=== PATIENT | male | born 1980 | race Caucasian/White ===

== ENCOUNTER 2018-10-26 11:58 | Emergency (ER) | payer OTHER, SELFPAY ==
[2018-10-26 12:03] VITALS: BP 130/90; PULSE 98; RESP 16; TEMP 36.6; O2SAT 98
--- NOTE | 2018-10-26 12:22 | ED.GENADUL_ITS ---
Discharge Plan Disposition Patient Disposition: HOME Condition: Stable Discharge Details Chief Complaint: EyeProblem Clinical Impression: Conjunctivitis of left eye Primary Care Provider: None,None ED Provider: Parag Pires Home Meds and New Rx's Prescriptions: New erythromycin 5 mg/gram (0.5 %) ointment 1 applic OP TID 7 Days Qty: 3.5 RF: 0 Continued albuterol sulfate [ProAir HFA] 200 PUFF HFA aerosol inhaler 2 puff Inhalation Q6H Qty: 1 RF: 0 Discharge Instructions Instructions: Conjunctivitis (ED) Medical Decision Making 38 yo male comes in with left eye redness/crusting since this morning. Has injected conjunctiva of left eye, no periorbital swelling, eomi without pain, perrl, denies trauma, no evidence of corneal abrasion or iritis. Suspect conjunctivitis, will tx with abx ointment and d/c, advised f/u with pcp if not better in a week and return precautions given Differential Diagnosis keratitis, conjunctivitis HPI General Mode of arrival: ambulatory . Date/Time Provider Initiated Documentation: 10/26/18 12:16 . Limitations to Documentation: no limitations . Information obtained by: patient . History of Present Illness 38 year old M presents to the emergency department with the chief complaint of left eye redness, described as mild, and is localized to the eyes. Patient reports no radiation. Patient started experiencing this day(s) (1) and it has been constant. No relieving factors improve symptom(s), No exacerbating factors reported . Patient notes no other symptoms.. Patient did receive the following treatments prior to arrival, none Related Data Home Medications Medication Instructions Recorded Confirmed albuterol sulfate [ProAir HFA] 2 puff INHALATION Q6H #1 inh 03/02/13 10/26/18 erythromycin 1 applic OP TID 7 Days #3.5 gm 10/26/18 Previous Rx's Medication Instructions Recorded albuterol sulfate [ProAir HFA] 2 puff INHALATION Q6H #1 inh 03/02/13 erythromycin 1 applic OP TID 7 Days #3.5 gm 10/26/18 Allergies Allergy/AdvReac Type Severity Reaction Status Date / Time No Known Allergies Allergy Unverified 10/26/18 12:05 General Stated Complaint: EyeProblem MAXIMILIANO: 4 Review of Systems Review of Systems All systems reviewed & are unremarkable except as noted in HPI and below Constitutional Denies chills, Denies fever(s) and Denies weakness Cardiovascular Denies chest pain and Denies dyspnea Respiratory Denies cough and Denies dyspnea Gastrointestinal Denies abdominal pain, Denies nausea and Denies vomiting Musculoskeletal Denies joint swelling Neurologic Denies weakness Allergic/Immunologic Denies urticaria PFSH Social History Smoking/Tobacco Use Status: Current every day Drug use: Never Do you feel safe at home: Yes Do you feel safe in your relationship?: Yes Exam Const General: no acute distress Orientation: alert HENMT Head: normal to inspection Ears: external ears normal General nose exam: external nose normal Mouth: moist mucous membranes Neck Neck: normal visual inspection Resp Effort & Inspection: normal respiratory effort and able to speak in complete sentences Cardio Rate: regular rate Skin General skin exam: no rashes or lesions noted Neuro General: alert and oriented x3 Extrem General: normal to inspection Psych Mental Status: mental status grossly normal Course Vital Signs Temperature 36.6 C 10/26/18 12:03 Pulse 98 H 10/26/18 12:03 Respiratory Rate 16 10/26/18 12:03 Blood Pressure 130/90 10/26/18 12:03 Pulse Oximetry 98 10/26/18 12:03 Temperature 36.6 C 10/26/18 12:03 Temperature Source Temporal Artery Scan 10/26/18 12:03 Pulse 98 H 10/26/18 12:03 Respiratory Rate 16 10/26/18 12:03 Respiratory Effort 10/26/18 12:09 Blood Pressure 130/90 10/26/18 12:03 Blood Pressure Position Sitting 10/26/18 12:03 Pulse Oximetry 98 10/26/18 12:03 Oxygen Delivery Method Room Air 10/26/18 12:03 Oxygen Flow Rate 0 10/26/18 12:03
== END 2018-10-26 12:32 | disposition home or self-care (01) ==
LOC: ER 12:32
PROVIDERS: Emergency Provider Emergency Medicine
DX: H10.32 Unspecified acute conjunctivitis, left eye (principal); F17.210 Nicotine dependence, cigarettes, uncomplicated
CPT/HCPCS: 99283

== ENCOUNTER 2018-11-03 10:33 | Emergency (ER) | payer OTHER, SELFPAY ==
[2018-11-03 10:38] VITALS: BP 111/77; PULSE 84; RESP 16; TEMP 36.7; O2SAT 99
--- NOTE | 2018-11-03 10:51 | DI.RAD_ITS ---
SYMPTOMS/DIAGNOSIS: COUGH, FEVER PA AND LATERAL CHEST: The heart is normal in size. The lungs are clear. The mediastinal structures and pleura appear intact. CONCLUSION: Normal chest. No evidence of acute cardiopulmonary disease.
--- NOTE | 2018-11-03 10:52 | W.ED.GENAD ---
Discharge Plan Disposition Patient Disposition: HOME Condition: Improving Discharge Details Chief Complaint: RespSymp Clinical Impression: Acute bronchitis Primary Care Provider: None,None ED Provider: Natanael Goncalves Home Meds and New Rx's Prescriptions: New amoxicillin-pot clavulanate 875-125 mg tablet 1 tab PO BID 10 Days Qty: 20 RF: 0 guaifenesin [Mucinex] 600 mg tablet extended release 12hr 600 mg PO Q12H PRNQty: 10 RF: 0 Discharge Instructions Instructions: Acute Bronchitis (ED) Additional Instructions: May use the provided albuterol inhaler 1 to 2 puffs every 4 hours as needed for cough or shortness of breath during times of illness. Tylenol and/or ibuprofen as needed for fever, aches, pains. Follow-up and establish primary care as you have planned. Take antibiotics as prescribed. Return for worsening or any other acute concern Medical Decision Making 38-year-old male presents from home with his with 3 days of cough, congestion, fever and chills. His vital signs are normal but he does demonstrate rhonchi of the right base on exam. Differential diagnosis includes bronchitis, pneumonia, he is a smoker at risk for COPD. Patient given DuoNeb updraft and referred for chest x-ray. The radiograph without clear infiltrate. Consistent with acute bronchitis and probable component of mild COPD exacerbation. Patient given an albuterol inhaler with instructions. We will place him on a course of antibiotics. He is stable for outpatient management and has plans to follow-up to establish primary care. HPI General Mode of arrival: ambulatory. Date/Time Provider Initiated Documentation: 11/03/18 10:36. Limitations to Documentation: no limitations. Information obtained by: patient and family. History of Present Illness 38 year old M presents to the emergency department with the chief complaint of Cough and fever, described as moderate, Quality is described as dull and constant, and is localized to the chest. Patient reports no radiation. Patient started experiencing this day(s) and it has been constant. No relieving factors improve symptom(s), No exacerbating factors reported . Patient notes fever/chills, malaise and weakness. Patient did receive the following treatments prior to arrival, none Related Data Home Medications Medication Instructions Recorded Confirmed amoxicillin-pot clavulanate 1 tab PO BID 10 Days #20 tab 11/03/18 guaifenesin [Mucinex] 600 mg PO Q12H PRN #10 tab 11/03/18 Previous Rx's Medication Instructions Recorded amoxicillin-pot clavulanate 1 tab PO BID 10 Days #20 tab 11/03/18 guaifenesin [Mucinex] 600 mg PO Q12H PRN #10 tab 11/03/18 Allergies Allergy/AdvReac Type Severity Reaction Status Date / Time No Known Allergies Allergy Unverified 11/03/18 10:43 General Stated Complaint: RespSymp MAXIMILIANO: 4 Review of Systems Review of Systems fever and chills, weakness, malaise, cough. 6 systems reviewed and otherwise - [facility] Social History Smoking/Tobacco Use Status: Current every day Alcohol Intake: current Alcohol Intake frequency: 3 or more drinks per day Drug use: Never Do you feel safe at home: Yes Do you feel safe in your relationship?: Yes Exam Narrative Exam Narrative: GEN: awake, alert, oriented 3. Pleasant, well groomed, interactive. HEAD: Normocephalic, atraumatic ENT: Mucous membranes moist, oropharynx unremarkable, External ear exam unremarkable EYES: PERRL, EOMI NECK: Full ROM, no ABDOUL, no menigismus CHEST/RESP: Nontender, right base rhonchi CARDIOVASCULAR: RRR, no murmur, rub julieta. 2+ Rad pulse bilateral ABDOMEN: Soft, nontender, no mass. +Bowel sounds EXT: Full ROM, no edema, no rash Neuro: Grossly normal neurologic exam, conversant, interactive. Psych: Speech fluent, thoughts congruent, affect normal Course Vital Signs Temperature 36.7 C 11/03/18 10:38 Pulse 84 11/03/18 10:38 Respiratory Rate 16 11/03/18 10:38 Blood Pressure 111/77 11/03/18 10:38 Pulse Oximetry 99 11/03/18 10:38 Temperature 36.7 C 11/03/18 10:38 Temperature Source Temporal Artery Scan 11/03/18 10:38 Pulse 84 11/03/18 10:38 Respiratory Rate 16 11/03/18 10:38 Respiratory Effort Non-Labored 11/03/18 10:41 Blood Pressure 111/77 11/03/18 10:38 Blood Pressure Position Sitting 11/03/18 10:38 Pulse Oximetry 99 11/03/18 10:38 Oxygen Delivery Method Room Air 11/03/18 10:38 Oxygen Flow Rate 0 11/03/18 10:38 Pain Level 3 11/03/18 10:38
[2018-11-03] MEDS: Albuterol/Ipratropium 3 ML UPD VIAL UPD (10:53)
[2018-11-03 11:39] VITALS: BP 111/77; PULSE 84; RESP 16; TEMP 36.7; O2SAT 99
== END 2018-11-03 11:35 | disposition home or self-care (01) ==
PROVIDERS: Emergency Provider Emergency Medicine
DX: J20.9 Acute bronchitis, unspecified (principal); F17.210 Nicotine dependence, cigarettes, uncomplicated
CPT/HCPCS: 94640; 99283; 71046; J7620

== ENCOUNTER 2020-11-05 08:14 | Outpatient (REF) | payer OTHER, SELFPAY ==
[2020-11-05 16:01] LABS: ALT 30 U/L (16-63); AST 14 U/L (15-37); Albumin 3.9 g/dL (3.4-5.0); Alkaline Phosphatase 87 U/L (46-116); Anion Gap 7.6 mmol/L (3-11); BUN 13 mg/dL (7-18); Bilirubin, Total 0.4 mg/dL (0.2-1.0); CO2 28.4 mmol/L (21.0-32.0); CREATININE 1.1 mg/dL (0.70-1.30); Calcium 9.5 mg/dL (8.5-10.1); Calculated LDL 109 mg/dL (<100); Chloride 107 mmol/L (98-107); Cholesterol 185 mg/dL (<200); Glucose 108 mg/dL (74-106); HDL Cholesterol 49 mg/dL (40-60); Potassium 4.6 mmol/L (3.5-5.1); Sodium 143 mmol/L (136-145); Total Protein 6.5 g/dL (6.4-8.2); Triglyceride 139 mg/dL (<150)
== END 2020-11-05 08:15 | disposition home or self-care (01) ==
LOC: NCHCN 08:14
PROVIDERS: PCP Family Medicine; Visit Provider Nurse Practitioner
DX: Z00.00 Encounter for general adult medical examination without abnormal findings (principal); Z13.220 Encounter for screening for lipoid disorders
CPT/HCPCS: 80053; 80061

== ENCOUNTER 2023-06-01 05:13 | Inpatient (IN) | payer OTHER, SELFPAY ==
[2023-06-01] VITALS (96 sets, daily range): BP systolic 88–130; BP diastolic 52–88; PULSE 55–179; RESP 13–29; TEMP 35.8–36.8; O2SAT 89–99
--- NOTE | 2023-06-01 05:15 | RT.EKG_ITS ---
APPROVED REPORT Exam: Resting ECG Reason for Exam: chest discomfort Patient Location: E HR:172 bpm ECG Measurements Heart Rate 172 AXIS NE 112 P -84 QRSd 93 QRS -39 QT 286 T -6 QTc 482 Conclusion Sinus or ectopic atrial tachycardia...P axis (-45,135), rate> 99 Atrial premature complex...SV complex w/ short R-R interval Inferior infarct, old...Q >35mS, II III aVF Physician: SVT vs flutter. No stemi
[2023-06-01] MEDS: Adenosine 6 MG/2 ML VIAL ×3 (05:28→05:44)
--- NOTE | 2023-06-01 05:30 | RT.EKG_ITS ---
APPROVED REPORT Exam: Resting ECG Reason for Exam: rapid heart rate Patient Location: E HR:159 bpm ECG Measurements Heart Rate 159 AXIS [place] [id number] P [id number] QRSd 86 QRS 245 QT 279 T -5 QTc 454 Conclusion Atrial fibrillation...V-rate 122-205, irreg A-activity Ventricular premature complex...V complex w/ short R-R interval Markedly posterior QRS axis...late V-lead transition Physician: Adenosine given, pause shows afib
--- NOTE | 2023-06-01 05:30 | RT.EKG_ITS ---
APPROVED REPORT Exam: Resting ECG Reason for Exam: rapid heart rate Patient Location: E HR:159 bpm ECG Measurements Heart Rate 159 AXIS [place] [id number] P [id number] QRSd 86 QRS 245 QT 279 T -5 QTc 454 Conclusion Atrial fibrillation...V-rate 122-205, irreg A-activity Ventricular premature complex...V complex w/ short R-R interval Markedly posterior QRS axis...late V-lead transition Physician: a fib with RVR noted during adenosine
[2023-06-01] MEDS: Normal Saline 1,000 ML 1000 ML IV (05:40)
--- NOTE | 2023-06-01 05:45 | RT.EKG_ITS ---
APPROVED REPORT Exam: Resting ECG Reason for Exam: palpitations Patient Location: E HR:113 bpm ECG Measurements Heart Rate 113 AXIS ME [id number] P [id number] QRSd 88 QRS -13 QT 325 T 4 QTc 446 Conclusion Atrial fibrillation...V-rate 75-167, irreg A-activity Low voltage, precordial leads...precordial leads <1.0mV Physician: bety
--- NOTE | 2023-06-01 05:46 | ED.GENADUL_ITS ---
Discharge Plan Disposition Patient Disposition: Admit to [facility] Condition: Improving Discharge Details Chief Complaint: Chest Pain Clinical Impression: Atrial fibrillation with RVR Primary Care Provider: Tom Argueta ED Provider: Deyvi Lux Home Meds and New Rx's Prescriptions: No Action No Known Home Meds Medical Decision Making 42-year-old male with no significant past medical history presents today for evaluation of lightheadedness. Patient states that when he woke up this morning around 2:30 AM he felt like his heart was racing he had a faint m etallic taste in his mouth, and he felt like he was going to faint. 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 He denies any significant chest pain. He did drink about 6 cups of alcohol yesterday which she says is less than normal. He denies any cocaine use, he denies any caffeine use. He denies any history of cardiac disease or dysrhythmias. He denies any family history of dysrhythmias but he does have a family history AR. No other complaints at this time. No other modifying factors. Physical exam demonstrates a nervous appearing male. Heart rate in the 180s, EKG appears to show evidence of SVT. Questionable A-fib. He has no history of A-fib or SVT. With a notably elevated heart rate we did perform Valsalva technique 3 times. No improvement there. There were very brief pauses where he seemed to slow down for a second, but no resolution. We then elected to attempt cardioversion with adenosine. 6 mg was given with no change or improvement. Repeat 12 mg dose was given which showed a slight slowing, and EKG during that stage seems to show potential A-fib. Repeat doses given with same effect. We transition to Cardizem, 20 mg IV bolus was given which notably slowed his heart rate down to the low 100s. Gradually after this he transition back up to the 1 20s to 130s. He was given an additional 10 mg of Cardizem, and started on a Cardizem drip. He feels much better symptomatically. Laboratory workup shows no white count. Electrolytes normal. Magnesium normal. Troponin normal. Thyroid function normal. Alcohol level negative. Patient is stable at this time on Cardizem drip. Will contact hospitalist for admission. Discussed the case with the hospitalist Dr. Wiley, he agrees with the assessment and plan. I have extensively reviewed the treatment plan with the patient. I have addressed all patient concerns at this time. I have also discussed the plan with the admitting physician and they agree with the current assessment and plan and have agreed to assume responsibility for the patient. All parties demonstrate verbal understanding and agreement with our assessment and plan at this time. The documentation in this chart was dictated using [employer] dictation software. Please excuse any dictation errors. HPI General Date/Time Provider Initiated Documentation: 06/01/23 05:27 . HPI Narrative: 42-year-old male with no significant past medical history presents today for evaluation of lightheadedness. Patient states that when he woke up this morning around 2:30 AM he felt like his heart was racing he had a faint metallic taste in his mouth, and he felt like he was going to faint. 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 He denies any significant chest pain. He did drink about 6 cups of alcohol yesterday which she says is less than normal. He denies any cocaine use, he denies any caffeine use. He denies any history of cardiac disease or dysrhythmias. He denies any family history of dysrhythmias but he does have a family history AR. No other complaints at this time. No other modifying factors. Related Data Home Medications Medication Instructions Recorded Confirmed Unknown [No Known Home Meds] 05/13/22 06/01/23 Allergies Allergy/AdvReac Type Severity Reaction Status Date / Time No Known Allergies Allergy Unverified 06/01/23 06:02 General Stated Complaint: Chest Pain MAXIMILIANO: 2 Review of Systems All systems reviewed & are unremarkable except as noted in HPI and below PFSH All Active Problems (Updated 06/01/23 @ 07:31 by Deyvi Lux DO) Atrial fibrillation with RVR (Acute) Social History Smoking/Tobacco Use Status: Former Tobacco Use Smoking risk assessment performed?: Yes Alcohol Intake: current Alcohol Intake frequency: a few times a week Alcohol type: beer Drug use: Never Substance use type: does not use Housing: house Do you feel safe at home: Yes Do you feel safe in your relationship?: Yes Exam Narrative Exam Narrative: 1.Const: Well-nourished, Well-developed, appearing stated age 2.Eyes: PERRL, no conjunctival injection, and symmetrical lids. 3.ENT: Atraumatic external nose and ears. Moist MM. Neck: Symmetric, trachea midline, No thyromegaly. 4.CVS: +S1/S2, No murmurs or gallops. Peripheral pulses 2+ and equal in all extremities. Brisk capillary refill in all extremities. 5.RESP: Unlabored respiratory effort. Clear to auscultation bilaterally. No wheezes rales or rhonchi 6.GI: Soft, Nontender/Nondistended, No hepatosplenomegaly. No guarding or rebound. 7.MSK: Normocephalic/Atraumatic, Extremities w/o deformity or ttp No cyanosis or clubbing, Normal movement of all extremities 8.Skin: Warm, Dry. No rashes or lesions. 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 Sensation grossly intact, no focal neurologic deficits. 10.Psych: (AAO) x3. Appropriate mood and affect Course Vital Signs Vital signs: Vital Signs Temperature 35.8 C L 06/01/23 05:19 Pulse 173 H 06/01/23 05:19 Respiratory Rate 16 06/01/23 05:19 Pulse Oximetry 98 06/01/23 05:19 Temperature 35.8 C L 06/01/23 05:19 Temperature Source Temporal Artery Scan 06/01/23 05:19 Pulse 173 H 06/01/23 05:19 Respiratory Rate 16 06/01/23 05:19 Blood Pressure Position Supine 06/01/23 05:19 Pulse Oximetry 98 06/01/23 05:19 Oxygen Delivery Method Room Air 06/01/23 05:19 Oxygen Flow Rate 0 06/01/23 05:19 Pain Level 0 06/01/23 05:19 Critical Care Time Critical Care Time Critical Care Time: Yes Total Critical Care Time: 90 Attestation: Upon my evaluation, this patient had a high probability of imminent or life- threatening deterioration, which required my direct attention, intervention, and personal management. I have personally provided 90 minutes of critical care time exclusive of time spent on separately billable procedures. Time includes review of laboratory data, radiology results, discussion with consultants, and monitoring for potential decompensation. Interventions were performed as documented.
[2023-06-01 05:48] LABS: Abs Immature Grans 0.02 10^3/uL (0.0-0.06); Absolute Basophil Count 0.04 10^3/uL (0.0-0.2); Absolute Eosinophil Count 0.32 10^3/uL (0.0-0.7); Absolute Lymphocyte Count 4.43 10^3/uL (1.2-3.4); Absolute Monocyte Count 0.61 10^3/uL (0.1-0.8); Absolute Neutrophil Count 3.19 10^3/uL (1.2-6.7); Basophils % 0.5; Eosinophils % 3.7; HCT 50.9 % (40.0-50.0); HGB 17.6 g/dL (13.5-17.5); Immature Grans % 0.2; Lymphocytes % 51.5; MCH 31.3 pg (27.0-33.0); MCHC 34.6 % (32.0-36.0); MCV 91 fL (80-95); MPV 10.6 fL (8.0-11.0); Monocytes % 7.1; Platelet Count 233 10^3/uL (130-400); RBC 5.62 10^6/uL (4.36-5.78); RDW 12.4 % (11.8-14.1); RDW-SD 41.2 fL; WBC 8.61 10^3/uL (4.4-10.8)
[2023-06-01] MEDS: dilTIAZem 25 MG/5 ML VIAL 20 MG IVP (05:50)
[2023-06-01 06:00] LABS: PTT Activated 28.1 sec (23.6-32.8); Prothrombin Time 9.8 sec (9.1-11.1)
[2023-06-01 06:11] LABS: Magnesium 1.9 mg/dL (1.8-2.4)
[2023-06-01] MEDS: dilTIAZem 25 MG/5 ML VIAL 10 MG IVP (06:12)
[2023-06-01 06:16] LABS: ALT 54 U/L (16-63); AST 26 U/L (15-37); Albumin 4.1 g/dL (3.4-5.0); Alkaline Phosphatase 97 U/L (46-116); Anion Gap 8.9 mmol/L (3-11); BUN 14 mg/dL (7-18); Bilirubin, Total 0.6 mg/dL (0.2-1.0); CO2 29.1 mmol/L (21.0-32.0); CREATININE 1.2 mg/dL (0.70-1.30); Calcium 9.7 mg/dL (8.5-10.1); Chloride 104 mmol/L (98-107); Estimated GFR 76.95 (mL/min/1.73m2); Glucose 130 mg/dL (74-106); NT-proBNP 30 pg/mL (<300); Potassium 4.4 mmol/L (3.5-5.1); Sodium 142 mmol/L (136-145); TSH (W/Ref FT4) 2.18 uIU/mL (0.36-3.74); Total Protein 7.5 g/dL (6.4-8.2); Troponin I < 50 ng/L (<or=60)
[2023-06-01 06:18] LABS: ETHANOL BLOOD < 3.0 mg/dL (<10)
[2023-06-01] MEDS: dilTIAZem 125 MG in Normal Saline 100 ML 10 MG IV (06:33)
[2023-06-01] MEDS: Normal Saline 1,000 ML 125 ML IV ×2 (06:54→21:49)
--- NOTE | 2023-06-01 07:42 | W.PM.HP.N ---
Date of service: 06/01/23 Time of Service: 07:22 Assessment and Plan Assessment and plan (1) Atrial fibrillation with RVR: Status: Acute Assessment and plan: Alcohol use is suspected as a cause for his atrial fibrillation. However patient needs an outpatient PSG to rule out SAUL. Patient has a history of heavy snoring and has never had a workup for sleep apnea. We will check an echocardiogram to rule out a cardiomyopathy and to rule out evidence of prior ischemic heart disease or valvulopathy. Will consult with cardiology for further advice and for outpatient follow-up. As his [id number] score is 0 I will only use DVT prophylactic Lovenox for now but will go ahead and start him on aspirin. Will also get glycohemoglobin A1c and a lipid profile for risk reduction profiling. Continue diltiazem drip and begin oral diltiazem loading. Professional time spent interviewing and examining patient, discussion of goals of care with hospital team (care management, nursing and consulting professionals) was 60 minutes. (2) Alcohol use disorder: Status: Acute Assessment and plan: Will monitor CIWA scores was hospitalized. As the patient's had no history of alcohol withdrawal we will withhold initiation of phenobarbital unless he starts having high CIWA scores. Started on routine use of thiamine, folic acid, multivitamin. Electrolytes are already been checked. Magnesium potassium level are normal. I will add a phosphorus level to his routine labs. History of Present Illness History of Present Illness Chief Complaint: Palpitations, dizziness Narrative: 42-year-old male presents to the emergency department with acute onset of palpitations and lightheadedness beginning around 2:30 AM. Patient was getting ready for work felt like his heart was racing and he felt like he was about to faint and complain of metallic taste in his mouth. 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 Evaluation in the emergency room including EKG that demonstrated what appeared to be a regular narrow complex tachycardia in the 180s initially thought to be SVT. Despite repeated Valsalva maneuvers heart rate remained elevated and he was given adenosine 6 mg IV push with no improvement and a repeat dose of 12 mg showed slight slowing and a repeat EKG at that time was consistent with rapid atrial fibrillation. Patient was then given Cardizem 20 mg IV bolus which slowed his heart rate down in the low 100s but then gradually increased into the 120s to 130s and was given additional Cardizem 10 mg IV push and started on diltiazem drip. Workup included serial EKGs that showed no acute ischemic changes. First troponin I level was normal second 1 is pending at this time. TSH was normal. CBC and CMP were unremarkable. Magnesium level was normal. Patient denies any significant past medical history and takes no prescription medications. Denies use of illicit drugs. Does admit to regular alcohol intake. His blood alcohol level was unremarkable this morning, i.e. less than 3 mg/dL. States yesterday he had 6 glasses of beer which is less than his usual intake. Patient has clarified his alcohol intake. He usually drinks 8-14 drinks per week. He states that the 6 glasses of beer yesterday was less than his usual intake on the holiday. He has never had a history of alcohol withdrawal. Other than the palpitations he denies any tremors diaphoresis or anxiousness. At this time we will continue to monitor CIWA scores but withhold initiation of phenobarbital. Patient is being admitted to the intensive care unit for control of his atrial fibrillation. He will be started on oral diltiazem and weaned off the diltiazem drip. His [id number] score is 0. He will be started on aspirin. Will get a cardiology consult and check an echocardiogram. It suspected that he probably has alcohol induced atrial fibrillation. Review of Systems All systems reviewed & are unremarkable except as noted in HPI and below Constitutional Constitutional: Reports as per HPI Cardiovascular Cardiovascular: Reports as per HPI Respiratory Respiratory: Reports as per HPI Gastrointestinal Gastrointestinal: Reports system reviewed and no additional complaints, except as documented Genitourinary Genitourinary: Reports system reviewed and no additional complaints, except as documented Musculoskeletal Musculoskeletal: Reports system reviewed and no additional complaints, except as documented Integumentary/Breasts Skin/Breast: Reports system reviewed and no additional complaints, except as documented Neurologic Neurologic: Reports system reviewed and no additional complaints, except as documented Psychiatric Psychiatric: Reports system reviewed and no additional complaints, except as documented Endocrine Endocrine: Reports system reviewed and no additional complaints, except as documented Hematologic/Lymphatic Hematologic/Lymphatic: Reports system reviewed and no additional complaints, except as documented PFSH All Active Problems (Updated 06/01/23 @ 07:52 by Nawaf Wiley MD) Alcohol use disorder (Acute) Atrial fibrillation with RVR (Acute) Surgical History (Updated 06/01/23 @ 09:12 by Nawaf Wiley MD) History of repair of tracheoesophageal fistula Social History (Updated 06/01/23 @ 09:18 by Nawaf Wiley MD) Smoking/Tobacco Use Status: Former Tobacco Use tobacco type: cigarettes Quit Date: 11/05/21 Pack-years: 26 Tobacco: How many years used: 26 Smoking risk assessment performed?: Yes Alcohol Intake: current Alcohol Intake frequency: a few times a week Alcohol type: beer Details: averages 8 to 14 beers per week Drug use: Never Substance use type: does not use Housing: house Do you feel safe at home: Yes Do you feel safe in your relationship?: Yes Meds Allergies and Home Medications Allergies Allergy/AdvReac Type Severity Reaction Status Date / Time No Known Allergies Allergy Unverified 06/01/23 06:02 Home Medications Medication Instructions Recorded Confirmed Type Unknown [No Known Home Meds] 05/13/22 06/01/23 History Exam Narrative Exam Narrative: Alert and oriented x4, obese male, dark brown hair HEENT: Atraumatic normocephalic, pupils equally round reactive to light and accommodation, extraocular motion intact, eyes appear bloodshot Neck: Supple, nontender, without thyromegaly or lymphadenopathy or JVD. Normal carotid pulses Lungs: Clear to auscultation and percussion Heart: Irregularly irregular, without murmur rub or gallop. Normal apical impulse Abdomen: Nondistended, normal bowel sounds, nontender to palpation or percussion, no organomegaly, no bruits, no palpable masses Genitalia and rectal exam: Deferred Extremities: Normal range of motion with normal strength. No peripheral cyanosis or edema. Normal pulses Neurologic: Cranial nerves II through XII grossly within normal limits. Normal strength and sensation over the face trunk and extremities. No tremors or asterixis. Results Labs 06/01/23 05:23 06/01/23 05:23 Labs: Laboratory Results - last 24 hr 06/01/23 05:23 WBC 8.61 RBC 5.62 Hgb 17.6 H Hct 50.9 H MCV 91 MCH 31.3 MCHC 34.6 RDW 12.4 Plt Count 233 MPV 10.6 Immature Gran % 0.2 Neutrophils % 37.0 Lymphocytes % 51.5 Monocytes % 7.1 Eosinophils % 3.7 Basophils % 0.5 Nucleated RBC % 0.0 Absolute Neutrophils 3.19 Absolute Lymphocytes 4.43 H Absolute Monocytes 0.61 Absolute Eosinophils 0.32 Absolute Basophils 0.04 PT 9.8 INR 1.0 APTT 28.1 Sodium 142 Potassium 4.4 Chloride 104 Carbon Dioxide 29.1 Anion Gap 8.9 BUN 14 Creatinine 1.2 Est GFR (CKD-EPI 2020) 76.95 Glucose 130 H Calcium 9.7 Magnesium 1.9 Total Bilirubin 0.6 AST 26 ALT 54 Alkaline Phosphatase 97 Troponin I < 50 NT-Pro-B Natriuret Pep 30 Total Protein 7.5 Albumin 4.1 TSH 2.18 Ethyl Alcohol < 3.0 Last Vital Signs Temp 35.8 C L 06/01/23 05:19 Pulse 76 06/01/23 06:46 Resp 22 06/01/23 06:50 BP 117/65 06/01/23 06:46 Pulse Ox 98 06/01/23 05:19 PAWSS Have you Been Recently Intoxicated or Drunk Within the Last 30 days?: No Have you Ever Experienced Previous Episodes of Alcohol Withdrawal?: No Have you ever Experienced Withdrawal Seizures?: No Have you ever Experienced Delirium Tremens(DT)s?: No Have you ever undergone Alcohol Rehabilitation Treatment (i.e, inpt ot outpatient treatment programs)?: No Have you ever Experienced Blackouts?: No Have you ever Combined Alcohol with other Downers within the last 90 days?: No Have you ever Combined Alcohol with any other Substance of Abuse during the last 90 days?: No Positive Blood Alcohol level on Presentation? [PCS.BAL]: No Evidence of Increased Autonomic Activity (i.e. HR>120, tremor, sweating, agitation, nausea)?: No Result: 0 Time Spent Time spent with Patient: 55-74 minutes Time was spent: preparing to see the patient(eg.review tests), obtaining and/or reviewing separately otained hiistory, ordering medications,tests, procedures, referring, communicating with other health care transition coordinator (Discussion with Dr. Schrader from [place], ED provider, ICU nurses), indepentently interpreting results, counseling the patient (And patient's ) and care coordination
--- NOTE | 2023-06-01 08:07 | W.PC.ACHO ---
Registration Status: REG ER Primary Language: Preferred Language: ED Information & Data Chief Complaint Chest Pain 06/01/23 06:24 Triage Note pt states started feeling 06/01/23 05:19 off around 230am, heart rate felt irregular, metallic taste in mouth, felt like he was going go faint Most Recent Vital Signs Temperature 35.8 C L 06/01/23 05:19 Temperature Source Temporal Artery Scan 06/01/23 05:19 Pulse 76 06/01/23 06:46 Pulse 99 H 06/01/23 06:50 Respiratory Rate 22 06/01/23 06:50 Respiratory Effort Normal, Non-Labored 06/01/23 05:59 Respiratory Depth Normal 06/01/23 05:59 Respiratory Pattern Normal 06/01/23 05:59 Blood Pressure 117/65 06/01/23 06:46 Blood Pressure Mean 81 06/01/23 06:46 Blood Pressure Position Supine 06/01/23 05:19 Pulse Oximetry 98 06/01/23 05:19 Oxygen Delivery Method Room Air 06/01/23 05:19 Oxygen Flow Rate 0 06/01/23 05:19 Pain Level 0 06/01/23 05:19 Allergies No Known Allergies Allergy (Unverified 06/01/23 06:02) Precautions Isolation Standard precaution 06/01/23 05:57 Active Medications Generic Name Dose Route Start Last Admin Trade Name Samuel PRN Reason Stop Dose Admin Diltiazem HCl 125 mg/ Sodium 125 mls @ 10 mls/hr 06/01/23 06:15 06/01/23 07:01 Chloride IV 15 mg/hr INFUSION ANTONINO 15 mls/hr Titration Protocol 10 MG/HR Sodium Chloride 1,000 mls @ 125 mls/hr 06/01/23 06:55 06/01/23 06:54 Saline 1000ml Bag IV 125 mls/hr INFUSION ANTONINO Administration IV IV Catheter Type [Left Peripheral IV Antecubital] IV Catheter Gauge [Left 18 Antecubital] Diagnostics 06/01/23 06/01/23 06/01/23 Range/Units 08:28 07:40 05:23 WBC 8.61 (4.4-10.8) 10^3/uL RBC 5.62 (4.36-5.78) 10^6/uL Hgb 17.6 H (13.5-17.5) g/dL Hct 50.9 H (40.0-50.0) % MCV 91 (80-95) fL MCH 31.3 (27.0-33.0) pg MCHC 34.6 (32.0-36.0) % RDW 12.4 (11.8-14.1) % Plt Count 233 (130-400) 10^3/uL MPV 10.6 (8.0-11.0) fL Immature Gran % 0.2 Neutrophils % 37.0 Lymphocytes % 51.5 Monocytes % 7.1 Eosinophils % 3.7 Basophils % 0.5 Nucleated RBC % 0.0 (0.0-0.3) % Absolute Neutrophils 3.19 (1.2-6.7) 10^3/uL Absolute Lymphocytes 4.43 H (1.2-3.4) 10^3/uL Absolute Monocytes 0.61 (0.1-0.8) 10^3/uL Absolute Eosinophils 0.32 (0.0-0.7) 10^3/uL Absolute Basophils 0.04 (0.0-0.2) 10^3/uL PT 9.8 (9.1-11.1) sec INR 1.0 (0.9-1.1) APTT 28.1 (23.6-32.8) sec Sodium 142 (136-145) mmol/L Potassium 4.4 (3.5-5.1) mmol/L Chloride 104 (98-107) mmol/L Carbon Dioxide 29.1 (21.0-32.0) mmol/L Anion Gap 8.9 (3-11) mmol/L BUN 14 (7-18) mg/dL Creatinine 1.2 (0.70-1.30) mg/dL Est GFR (CKD-EPI 2020) 76.95 (mL/min/1.73m2) Glucose 130 H (74-106) mg/dL Calcium 9.7 (8.5-10.1) mg/dL Phosphorus Pending Magnesium 1.9 (1.8-2.4) mg/dL Total Bilirubin 0.6 (0.2-1.0) mg/dL AST 26 (15-37) U/L ALT 54 (16-63) U/L Alkaline Phosphatase 97 (46-116) U/L Troponin I Pending < 50 (<or=60) ng/L NT-Pro-B Natriuret Pep 30 (<300) pg/mL Total Protein 7.5 (6.4-8.2) g/dL Albumin 4.1 (3.4-5.0) g/dL TSH 2.18 (0.36-3.74) uIU/mL Ethyl Alcohol < 3.0 (<10) mg/dL Intake and Output - 24 Hour Total 06/01/23 05:13 thru 06/01/23 07:01 Intake Total 1004.667 Balance 1004.667 Weight 112 kg Intake: IV 1004.667 Falls Risk Assessment History of Falls No History 06/01/23 05:59 Contributing Factors Unstable 06/01/23 05:59 Ambulatory Aids Independent 06/01/23 05:59 Tubes/Lines W/no contributing factors 06/01/23 05:59 Gait Evaluation No gait disturbance 06/01/23 05:59 Cognition No cognitive impairment 06/01/23 05:59 Fall Total Score 13 06/01/23 05:59 Level of Risk Standard/Low Risk 06/01/23 05:59 Problems (Last Reviewed 06/01/23 @ 07:51 by Nawaf Wiley MD) Alcohol use disorder (Acute) Atrial fibrillation with RVR (Acute) v v v v v v v v v Sending and/or Receiving Nurses: Please use comment section below to note any information pertinent to the patient hand-off not included above. Information / Comments: Report received from: Patsy Funk RN all questions answered
[2023-06-01] MEDS: Normal Saline Flush 10 ML SYR IVP (08:47)
[2023-06-01] MEDS: Folic Acid 1 MG TAB PO (08:53)
[2023-06-01] MEDS: Thiamine 100 MG TAB PO (08:53)
[2023-06-01] MEDS: Multivitamin TAB 1 TAB PO (08:53)
[2023-06-01] MEDS: Aspirin 81 MG CHEW 324 MG CH (08:54)
[2023-06-01] MEDS: Enoxaparin 40 MG/0.4 ML SYR SC (09:01)
[2023-06-01] MEDS: dilTIAZem 60 MG TAB PO ×3 (09:01→20:09)
[2023-06-01 09:27] LABS: Troponin I < 50 ng/L (<or=60)
[2023-06-01 09:39] LABS: PHOSPHORUS 2.5 mg/dL (2.6-4.7)
[2023-06-01 09:41] LABS: Calculated LDL 133 mg/dL (<100); Cholesterol 226 mg/dL (<200); HDL Cholesterol 62 mg/dL (40-60); Triglyceride 157 mg/dL (<150)
[2023-06-01 10:23] LABS: Lab Add On Test DONE
--- NOTE | 2023-06-01 10:44 | PDOC.CMIN ---
Date of service: 06/01/23 Time of Service: 10:44 Care Management Initial Assmt Initial Assessment REASON FOR HOSPITALIZATION:: Rapid Atrial Fibrillation PREVIOUS FUNCTIONAL STATUS/SOCIAL/FAMILY SUPPORTS:: Independent at baseline in community, resides in [place] with and children. CURRENT FUNCTIONAL STATUS:: Admit to ICU, on CIWA. ADVANCE DIRECTIVES:: None on file. Has patient been provided with info about the portal/API?: No Did the patient sign up for the portal?: No CODE STATUS:: Full Code INSURANCE COVERAGE / FINANCIAL ISSUES:: [employer] ([facility] Only) PRIMARY CARE PHYSICIAN:: Tom Argueta POTENTIAL DISCHARGE NEEDS:: Follow up appointments. PATIENT/FAMILY EDUCATION NEEDS:: Review discharge instructions, discuss Ask Me Three. ANTICIPATED BARRIERS TO DISCHARGE:: None identified. TRANSPORTATION:: Via private vehicle with family. PLAN:: Anticipate Michael will return home when ready per MD. He will follow up with his PCP and plan of care as prescribed, and transport via private vehicle with family. PFSH All Active Problems (Updated 06/01/23 @ 07:52 by Nawaf Wiley MD) Alcohol use disorder (Acute) Atrial fibrillation with RVR (Acute) Surgical History (Updated 06/01/23 @ 09:12 by Nawaf Wiley MD) History of repair of tracheoesophageal fistula Social History (Updated 06/01/23 @ 09:18 by Nawaf Wiley MD) Smoking/Tobacco Use Status: Former Tobacco Use tobacco type: cigarettes Quit Date: 11/05/21 Pack-years: 26 Tobacco: How many years used: 26 Smoking risk assessment performed?: Yes Alcohol Intake: current Alcohol Intake frequency: a few times a week Alcohol type: beer Details: averages 8 to 14 beers per week Drug use: Never Substance use type: does not use Housing: house Do you feel safe at home: Yes Do you feel safe in your relationship?: Yes
[2023-06-01 10:48] LABS: Hemoglobin A1C 5.3 % (<5.7)
--- NOTE | 2023-06-01 11:41 | CHAPLAIN ---
Michael was resting in bed when I visited, and his Sulema was with him. 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 He talked about his cardiac issues that came on this morning before he came to work and he ended up going to the ED. He is waiting to have an echo and then meet with the Custodial Laborer. I will continue to visit.
--- NOTE | 2023-06-01 12:30 | DI.US_ITS ---
APPROVED REPORT EXAM: Comprehensive 2D, Doppler, and color-flow Echocardiogram Patient Location: In-Patient Room/Bed: XHB161 [employer]el Engine Ii Pipe Fitter: Kathrin Hines RDCS (AE) Indications: New onset A Fib, Evaluate LV and RV, Palpitations Other Information Study Quality: Adequate Conclusion Normal LV systoloic and diastolic functions. Probable left pleural effusion incidentally noted. Wall motion Left Ventricle The left ventricle is normal size. The left ventricular systolic function is normal. The left ventric ular ejection fraction is within the normal range. There is normal LV segmental wall motion. There is no ventricular septal defect visualized. LVEF is 56%. Right Ventricle The right ventricle is normal size. The right ventricular systolic function is normal. Atria The left atrium size is normal. The right atrium size is normal. The interatrial septum is intact wit h no evidence for an atrial septal defect. Aortic Valve The aortic valve is normal in structure. Aortic valve is trileaflet. There is no aortic valvular sten osis. No aortic regurgitation is present. Mitral Valve The mitral valve is normal in structure. No evidence of mitral valve stenosis. Mild mitral regurgita tion. Tricuspid Valve The tricuspid valve is normal in structure. There is no tricuspid valve stenosis. Trace tricuspid reg urgitation. Unable to assess PA pressure. Pulmonic Valve The pulmonary valve is normal in structure. There is no pulmonic valvular stenosis. There is no pulmo theresa valvular regurgitation. Great Vessels The aortic root is normal in size. The ascending aorta is normal in size. Aortic arch is normal in ca liber. IVC is normal in size and collapses >50% with inspiration. Pericardium There is no pericardial effusion. There is a trace loculated anterior pericardial effusion. Incidenta l finding of left pleural effusion. Correlate clinically and radiographically. 2D Dimensions IVSD d PLAX 1.19 cm M: 0.6-1.2 Ao Root d 3.37 cm M: 3.1 - 3.7 LVPW d PLAX 1.20 cm M: 0.6 - 1.2 Ao Asc Diam d 3.39 cm M: 2.6 - 3.4 LVID d PLAX 4.29 cm M: 4.2 - 5.8 LVDs 3.13 cm M: 2.5 - 4.0 LV EF Teichholz 53.0 % FS 27.06 % LV EDV (Teich) 82.6 mL LV ESV (Teich) 38.8 mL M-Mode TAPSE 2.64 cm (M/F) >1.7 Auto EF LV EDV A4C 139.4 mL LV EDV A2C 142.3 mL LV EDV BP 147.0 mL LV ESV A4C 62.9 mL LV ESV A2C 65.8 mL LV ESV BP 64.7 mL LVEF(%) A4C 54.9 % LVEF(%) A2C 53.8 % LVEF(%) BP 56.0 % LV SV A4C 76.5 ml LV SV A2C 76.5 ml LV SV BP 82.3 ml LV CO A4C 7.9 L/min LV CO A2C 7.7 L/min LV CO BP 7.8 L/min HR A4C 102.86 BPM HR A2C 100.28 BPM LV EDV Index (BP) LV Diastology MV E' medial 0.138 (>0.07 m/s) MV E Vmax 0.98 (0.4-1.3 m/s) MV E/E' MED 7.08 (<14) MV A Vmax 0.20 (0.4-1.3 m/s) MV E' lateral 0.185 (>0.1 m/s) E/A Ratio 4.9 MV E/E' LAT 5.30 (<14) MV E' Average 0.162 m/s MV E/E'(average) 6.07 Aortic Valve AoV Vmax 1.31 m/s LVOT Vmax 0.97 m/s AoV Peak Grad 6.9 mmHg LVOT Peak Grad 3.8 mmHg AoV Area (Vmax) 2.52 cm2 LVOT VTI 0.169 m AoV VTI 0.240 m LVOT Mean Grad 2.1 mmHg AoV Mean Rashard. 0.90 m/s LVOT SV 57.54 mL AoV Mean Grad 3.7 mmHg LVOT Diam s 2.05 cm AoV Area (VTI) 2.40 cm2 Velocity Ratio 0.74 Mitral Valve MV DT 175 (160-240 msec) MV Vmax TIPS 0.96 m/s MV Mean Grad 0.9 (<2mmHg) MV VTI 0.259 m Pulmonary Valve PV Vmax 0.89 (0.5-1.5 m/s) RVOT Vmax 0.64 m/s PV Peak Grad 3.2 mmHg RVOT Peak Gr. 1.6 mmHg PV Mean Rashard 0.66 m/s RVOT VTI 0.126 m PV Mean Grad 1.9 mmHg RVOT Mean Gr. 0.9 mmHg Tricuspid Valve TV S' 0.16 m/s
[2023-06-01 13:19] LABS: Troponin I < 50 ng/L (<or=60)
--- NOTE | 2023-06-01 14:40 | PHA.REVIEW2 ---
Pharmacy Admission Review Admission Clinical Review Admission Pharmacy Review: (Updated 06/01/23 @ 07:52 by Nawaf Wiley MD) Alcohol use disorder (Acute) Atrial fibrillation with RVR (Acute) No Known Allergies Allergy (Unverified 06/01/23 06:02) Resuscitation Status Full Code Height 5 ft 8 in Weight 112 kg Comments Comments/Follow Ups: Watch HR, BP, labs and for med changes. Pharmacy Admission Review Renal Dosing Renal Dosing: BUN 14 mg/dL (7-18) 06/01/23 05:23 Creatinine 1.2 mg/dL (0.70-1.30) 06/01/23 05:23 Medications needing adjustments: Reviewed (Crcl ~96.3 mL/min current meds okay) Anticoagulation Anticoagulation: Hgb 17.6 g/dL (13.5-17.5) H 06/01/23 05:23 Hct 50.9 % (40.0-50.0) H 06/01/23 05:23 Plt Count 233 10^3/uL (130-400) 06/01/23 05:23 INR 1.0 (0.9-1.1) 06/01/23 05:23 Creatinine 1.2 mg/dL (0.70-1.30) 06/01/23 05:23 DVT Prophylaxis: Reviewed Medications: Enoxaparin Opiate Usage Evaluate Pain Scale/Pains Meds: N/A Relevant Labs Relevant Labs: Sodium 142 mmol/L (136-145) 06/01/23 05:23 Potassium 4.4 mmol/L (3.5-5.1) 06/01/23 05:23 Chloride 104 mmol/L (98-107) 06/01/23 05:23 Phosphorus 2.5 mg/dL (2.6-4.7) L 06/01/23 08:54 Magnesium 1.9 mg/dL (1.8-2.4) 06/01/23 05:23 Electrolytes, C-Reactive P, ESR: Reviewed DM Control DM Control: N/A (No DM noted in medical history, A1c is 5.3) Cardiac Review Cardiac Review: Troponin I < 50 ng/L (<or=60) 06/01/23 12:50 NT-Pro-B Natriuret Pep 30 pg/mL (<300) 06/01/23 05:23 BP, HR, EF%: Reviewed (BP has been low to normal so far this admission, HR has improved since admission.) QTc Review QTc: Reviewed (QTc was within normal limits on the EKGs done so far this admission) IV to PO Switch IV Medications: Reviewed Home Meds Home Med List reviewed: Reviewed (no known home meds) Current Meds Current Medication Order Review: Reviewed Comments Comments/Follow Ups: Watch HR, BP, labs and for med changes.
--- NOTE | 2023-06-01 16:00 | RT.EKG_ITS ---
APPROVED REPORT Exam: Resting ECG Reason for Exam: sinus Patient Location: I HR:63 bpm ECG Measurements Heart Rate 63 AXIS IL 174 P 52 QRSd 102 QRS -25 QT 411 T 1 QTc 421 Conclusion Sinus rhythm...normal P axis, V-rate 50- 99 Probable left atrial enlargement...P >50mS, <-0.10mV V1 Borderline left axis deviation...QRS axis (-15,-29) Low voltage, precordial leads...precordial leads <1.0mV Consider anterior infarct...Q >30mS in V2-V5 I have reviewed and interpreted ECG and agree with software generated interpretation.
[2023-06-01 23:43] LABS: *AMPHETAMINES SCREEN URINE Negative (Negative); *BARBITURATES SCREEN URINE Negative (Negative); *BENZODIAZEPINES SCREEN URINE Negative (Negative); Cannabinoids THC Negative (Negative); Cocaine Screen,Urine Negative (Negative); METHADONE URINE SCREEN Negative (Negative); OPIATES URINE SCREEN Negative (Negative)
[2023-06-01 23:44] LABS: Tricyclic Antidepressants Negative (Negative)
[2023-06-02] MEDS: Normal Saline 1,000 ML 125 ML IV (02:25)
[2023-06-02 03:14] VITALS: BP 103/64; PULSE 63; RESP 18; TEMP 36; O2SAT 97
[2023-06-02 07:35] VITALS: BP 112/68; PULSE 69; RESP 16; TEMP 36.1; O2SAT 97
--- NOTE | 2023-06-02 07:36 | W.PM.DS.N ---
Date of service: 06/02/23 Time of Service: 07:36 DS: Diagnosis Discharge Diagnosis (1) Atrial fibrillation with RVR: Status: Acute Discharge Plan Disposition Patient Disposition: Home Condition: Good Discharge Details Reason For Visit: Rapid Atrial Fibrillation Admit Date/Time: 06/01/23 07:26 Admit Provider: Nawaf Wiley Attending Provider: Nawaf Wiley Primary Care Provider: Tom Argueta [facility] Hospital Course: 42-year-old male former smoker his only significant past medical history was repair of a T-E fistula as an does not take any prescribed medications. Does drink beer on a regular basis approximately 8-14 beers a week not Day and had less than his usual holiday intake drinking about 6 beers. He woke up around 2:30 in the morning on June 01 with complaints of palpitations and dizziness he tried to lay back down until it is time to get ready for work but when his symptoms persisted he presented to the emergency department where he was found to be in rapid atrial fibrillation. Initially it was thought to be SVT as it was a rapid narrow complex tachycardia at a rate of 172 bpm however with repeated doses of adenosine heart rate transiently slowed down enough that further EKG showed that he was in atrial fibrillation. He was given a bolus of diltiazem 20 mg with improvement in his rate but required a second bolus of 10 mg and then was put on a diltiazem drip. Routine labs were obtained including CBC which was normal. Chemistry profile showed an elevated glucose of 130 serial troponin levels were obtained and all came back normal at less than 50. TSH was normal at 2.18. Electrolytes BUN/creatinine and LFTs were all normal. Subsequent hemoglobin A1c was checked and found to be normal at 5.3%. Lipid panel was obtained and showed a mild elevation of his cholesterol and triglycerides at total cholesterol 226 triglyceride 157 LDL 133. Urine toxicology screen was negative blood alcohol level was less than 3 mg/dL. Patient responded very well to the diltiazem drip was put on oral diltiazem 60 mg TID. He later converted to sinus rhythm in the afternoon on 06/01/2023 to sinus rhythm at a rate of 63 bpm. He was monitored overnight and had no further atrial dysrhythmias. Blood pressures ran a little on the soft side in the afternoon in the evening of 1226 with systolic pressures in the mid to high 90s. He will be discharged on diltiazem CD1 120 mg daily. He was begun on aspirin 81 mg daily. His [id number] score was 0 indicating low risk for stroke. An echocardiogram was performed but the final report is pending. I did review the images and the raw data and overall it appears he has normal LV and RV function. LVEF 56%. No wall motion abnormalities were seen. Hemodynamics did not suggest any diastolic heart failure either. Formal echocardiogram report is pending at this time. Order has been placed for 14-day cardiac event recorder. Interview with the patient and his suggest the patient has symptoms of sleep apnea and it is recommended that he be referred for polysomnogram. Patient was also counseled to cut down his alcohol intake. Home Meds and New Rx's Prescriptions: New diltiazem HCl 120 mg capsule,extended release 24hr 120 mg PO DAILY Qty: 30 0RF aspirin 81 mg tablet,delayed release (DR/EC) 81 mg PO DAILY Qty: 30 0RF Discharge Instructions Instructions: Diltiazem (By mouth), A-fib (Atrial Fibrillation) (DC) Stand Alone Forms: Nursing Discharge Form Referrals: Tom Argueta [Primary Care Provider] - (needs follow up in the next week. needs 14 cardiac event recorder to assess stability of heart rhythm; needs referral for polysomnogram to evaluate for sleep apnea Please make this appointment. ) Vianey Patricia, [employer]ACHINE OPERATOR [NURSE PRACTITIONER] - (Please set referral for within one month; patient admitted w/ paroxysmal atrial fibrillation and high suspicion of SAUL Please make this appointment ) Activity:: Activity as Tolerated Equipment/Supplies:: No Equipment Needed Diet:: Normal Diet Discharge Orders Discharge Orders: Discharge Order (Routine); Ordered 06/02/23 Ordered By: Nawaf Wiley Other Ambulatory Orders: 14 Day Instructor Painting (Routine) Timeframe: 10 Day Facility: [facility] - Location: Respiratory Therapy Ordered By: Nawaf Wiley DS: Summary Time Spent with Patient providing and/or coordinating discharge services: Less than 30 minutes Specific discharge activities: Interview/exam of patient; review of discharge instructions, completion of prescriptions/discharge instructions; discussion w/ nursing and CM; documentation of hospital visit Status at Discharge Functional status at discharge: independent ambulation Overall status at discharge: patient is back to baseline Mental Status: mental status grossly normal Speech and Movement: speech and movement normal Mood: congruent mood Affect: normal affect Exam Narrative Exam Narrative: Michael was asleep when I entered his room this morning but he woke up easily. He is eager to return home. Denies any palpitations or chest pain. Lungs are clear to auscultation Heart regular rate and rhythm without murmur rub or gallop Psych Mental Status: mental status grossly normal Speech and Movement: speech and movement normal Mood: congruent mood Affect: normal affect DS: Data Vitals/I&O Vitals and I&O: Vital Signs Temperature 36 C L 06/02/23 03:14 Temperature Source Tympanic 06/02/23 03:14 Pulse 63 06/02/23 03:14 Pulse Rhythm Regular 06/01/23 21:58 Pulse 55 L 06/01/23 21:30 Respiratory Rate 18 06/02/23 03:14 Respiratory Effort Normal, Non-Labored 06/01/23 21:58 Respiratory Depth Normal 06/01/23 21:58 Respiratory Pattern Normal 06/01/23 21:58 Blood Pressure 103/64 06/02/23 03:14 Blood Pressure Mean 76 06/01/23 21:01 Blood Pressure Position Supine 06/01/23 05:19 Pulse Oximetry 97 06/02/23 03:14 Oxygen Delivery Method Room Air 06/02/23 03:14 Oxygen Flow Rate 0 06/02/23 03:14 Pain Level 0 06/01/23 21:44 Intake & Output 06/01/23 06/01/23 06/02/23 11:59 23:59 11:59 Intake Total 1053.750 / 2677.0638 1623.3138 / 2677.0638 575 / 575 Output Total 1000 / 1000 Balance 1053.750 / 1677.0638 623.3138 / 1677.0638 575 / 575 Weight 112 kg Intake: IV 1053.750 / 2137.0638 1083.3138 / 2137.0638 575 / 575 Oral 540 / 540 Output: Urine 1000 / 1000 Other: Urine Color Yellow Urine Appearance Clear Urine Odor Strong Comment No void at this time. Voided 1000cc this shift. Voiding Methods Urinal Data Completed and Pending Pending studies at discharge: Echocardiogram performed 06/01/2023 finalized report is pending Labs on day of discharge: Labs from last 24 hours 06/01/23 06/01/23 06/01/23 23:22 12:50 08:54 Hemoglobin A1c Phosphorus 2.5 L Troponin I < 50 < 50 Triglycerides 157 H Total Cholesterol 226 H LDL Cholesterol, Calc 133 H HDL Cholesterol 62 Urine Opiates Screen Negative Urine Methadone Screen Negative Ur Barbiturates Screen Negative Ur Tricyclics Screen Negative Ur Amphetamines Screen Negative U Benzodiazepines Scrn Negative Urine Cocaine Screen Negative Ur THC Screen Negative Add-On Test Request 06/01/23 05:23 Hemoglobin A1c 5.3 Phosphorus Troponin I Triglycerides Total Cholesterol LDL Cholesterol, Calc HDL Cholesterol Urine Opiates Screen Urine Methadone Screen Ur Barbiturates Screen Ur Tricyclics Screen Ur Amphetamines Screen U Benzodiazepines Scrn Urine Cocaine Screen Ur THC Screen Add-On Test Request DONE PFSH All Active Problems Paroxysmal atrial fibrillation (Acute) Atrial fibrillation with RVR (Acute) Surgical History History of repair of tracheoesophageal fistula Social History Smoking/Tobacco Use Status: Former Tobacco Use tobacco type: cigarettes Quit Date: 11/05/21 Pack-years: 26 Tobacco: How many years used: 26 Smoking risk assessment performed?: Yes Alcohol Intake: current Alcohol Intake frequency: a few times a week Alcohol type: beer Details: averages 8 to 14 beers per week Drug use: Never Substance use type: does not use Housing: house Do you feel safe at home: Yes Do you feel safe in your relationship?: Yes Time Spent with Patient Time Spent with Patient: <45 minutes Time was spent: preparing to see the patient(eg.review tests), referring, communicating with other health direct care provider, indepentently interpreting results, counseling the patient and care coordination
[2023-06-02] MEDS: dilTIAZem 60 MG TAB PO (07:46)
[2023-06-02] MEDS: Multivitamin TAB 1 TAB PO (07:47)
[2023-06-02] MEDS: Thiamine 100 MG TAB PO (07:47)
[2023-06-02] MEDS: Folic Acid 1 MG TAB PO (07:48)
[2023-06-02] MEDS: Aspirin 81 MG CHEW CH (07:48)
--- NOTE | 2023-06-02 14:27 | PDOC.CMDIS ---
Date of service: 06/02/23 Time of Service: 14:27 LACE Index Scoring Tool Questions: Length of Stay (in days): 1 Was the patient admitted via the E.D.?: Yes E.D. Visits: 0 Answers: Total Score: 4 Risk of Readmission: Low Risk Care Management Discharge Plan Reason for Hospitalization: Rapid Atrial Fibrillation Discharge Plan: Michael will return home via private vehicle with family and follow up with his PCP. Patient/Family Education Needs: Review discharge instructions, discuss Ask Me Three.
== END 2023-06-02 08:33 | disposition home or self-care (01) | DRG 310 ==
LOC: ER 08:09 → ICU 08:15 → MS 21:37
PROVIDERS: Admitting Provider Internal Medicine; Emergency Provider Student in an Organized Health Care Education/Training Program; PCP Family Medicine; Visit Provider Internal Medicine
DX: I48.91 Unspecified atrial fibrillation (principal); R42 Dizziness and giddiness; F10.90 Alcohol use, unspecified, uncomplicated; R73.9 Hyperglycemia, unspecified; R06.83 Snoring; Z87.891 Personal history of nicotine dependence
CPT/HCPCS: 00123; 36415; 80053; 80061; 80307; 93005; 96361; 96365; 96366; 96375; 99291; J1650; 80320; 83036; 83735; 83880; 84100; 84443; 84484; 85025; 85610; 85730; 93010; 93306; 99223; 99238; J0153; J2560

== ENCOUNTER 2023-06-08 11:25 | Outpatient (CLI) | payer OTHER, SELFPAY | END 2023-06-08 11:26 | disposition home or self-care (01) | LOC: CARDOPNVT 11:25 | PROVIDERS: PCP Family Medicine; Visit Provider Family Medicine | DX: I48.91 Unspecified atrial fibrillation (principal) | CPT/HCPCS: 93246 ==

== ENCOUNTER 2023-07-01 08:17 | Outpatient (CLI) | payer OTHER, SELFPAY ==
--- NOTE | 2023-07-01 09:17 | W.ZIOMONITOR ---
Date of service: 07/01/23 Time of Service: 09:17 14 Day Construction Superintendent Referring Provider:: Ellie Indications:: Unspecified atrial fibrillation Note: This was a 14-day monitor to evaluate for atrial fibrillation 1. The underlying rhythm is sinus with rate range 37 to 131 bpm with average heart rate of 81 bpm. The slowest heart rate occurred during sleep hours. 2. Several supraventricular ectopics, sometimes aberrantly conducted with a few runs of supraventricular tachycardia, longest 15 beats, fastest 207 bpm. 3. No ventricular ectopy 4. No atrial fibrillation 5. No pauses more than 3 seconds Impression: Paroxysmal supraventricular tachycardia
== END 2023-07-01 08:18 | disposition home or self-care (01) ==
LOC: CARDOPNVT 08:17
PROVIDERS: PCP Family Medicine; Visit Provider Internal Medicine Interventional Cardiology
DX: I48.91 Unspecified atrial fibrillation (principal); I47.10 Supraventricular tachycardia, unspecified